=== PATIENT | female | born 1960 | race American Indian/Alaskan Native ===

== ENCOUNTER 2017-04-03 07:22 | Emergency (ER) | payer OTHER ==
[2017-04-03 07:30] VITALS: BP 124/82
--- NOTE | 2017-04-03 08:17 | Emergency Department Report ---
ED Upper Extremity Inj HPI - General Chief Complaint: Extremity Injury, Upper Stated Complaint: LEFT ARM PAIN Time Seen by Provider: 04/03/17 07:49 Source: patient Mode of arrival: Ambulatory Limitations: No Limitations - History of Present Illness Initial Comments: This is a 56-year-old female nontoxic, well nourished in appearance, no acute signs of distress presents to ED complaining of left arm pain with tickling sensation 1 day. Patient also stated she had a chest pain episode yesterday but denies any chest pain today. Patient describes chest pain as sharp sensation but denies any radiation. Today patient woke up with left arm pain and tingling. Patient also states she has upper back pain and pain radiates from back to her left arm. Patient denies any jaw pain, chest pain, shortness of breath, nausea, vomiting, fever, chills, stiff neck, numbness, or decreased range of motion. Patient denies any trauma to extremity. Patient describes left arm pain as aching with level of 3 out of 10. Allergies to penicillin. Denies past medical history. MD Complaint: Injury to:: left, arm -: Gradual, days(s) (1) Other Extremity Injury: Arm: Left Other Injuries: none Handedness: right Improves With: none Worsens With: none Associated Symptoms: denies other symptoms, neck pain. denies: weakness, numbness, suspects foreign body, nausea/vomiting, heard/felt popping sensat - Related Data Previous Rx's Medication Instructions Recorded Last Taken Type Acetaminophen/Codeine [Tylenol #3] 1 tab PO TID PRN #15 tab 04/26/15 Unknown Rx methOCARBAMOL [Robaxin TAB] 500 mg PO BID #20 tab 04/26/15 Unknown Rx Diazepam Tab [Valium] 5 mg PO Q8H PRN #21 tablet 04/29/15 Unknown Rx HYDROcodone/APAP 5-325 [Jarales 1 each PO Q6HR PRN #20 tablet 04/29/15 Unknown Rx 5/325] Ibuprofen [Motrin 600 MG tab] 600 mg PO Q8H PRN #30 tablet 04/03/17 Unknown Rx predniSONE [Deltasone] 20 mg PO BID #10 tab 04/03/17 Unknown Rx Allergies Allergy/AdvReac Type Severity Reaction Status Date / Time Penicillins Allergy Hives Verified 04/26/15 14:41 ED Review of Systems ROS: Stated complaint: LEFT ARM PAIN Other details as noted in HPI Constitutional: denies: chills, fever Eyes: denies: eye pain, eye discharge, vision change ENT: denies: ear pain, throat pain Respiratory: denies: cough, shortness of breath, wheezing Cardiovascular: denies: chest pain, palpitations Endocrine: no symptoms reported Gastrointestinal: denies: abdominal pain, nausea, diarrhea Genitourinary: denies: urgency, dysuria, discharge Musculoskeletal: denies: back pain, joint swelling, arthralgia Skin: denies: rash, lesions Neurological: denies: headache, weakness, paresthesias Psychiatric: denies: anxiety, depression Hematological/Lymphatic: denies: easy bleeding, easy bruising ED Past Medical Hx - Past Medical History Previous Medical History?: No - Surgical History Past Surgical History?: Yes Additional Surgical History: MISCARRIAGE d&c, left hand - Social History Smoking Status: Current Every Day Smoker Substance Use Type: Alcohol - Medications Home Medications: Home Medications Medication Instructions Recorded Confirmed Last Taken Type Acetaminophen/Codeine [Tylenol #3] 1 tab PO TID PRN #15 tab 04/26/15 Unknown Rx methOCARBAMOL [Robaxin TAB] 500 mg PO BID #20 tab 04/26/15 Unknown Rx Diazepam Tab [Valium] 5 mg PO Q8H PRN #21 tablet 04/29/15 Unknown Rx HYDROcodone/APAP 5-325 [Jarales 1 each PO Q6HR PRN #20 tablet 04/29/15 Unknown Rx 5/325] Ibuprofen [Motrin 600 MG tab] 600 mg PO Q8H PRN #30 tablet 04/03/17 Unknown Rx predniSONE [Deltasone] 20 mg PO BID #10 tab 04/03/17 Unknown Rx ED Physical Exam - General Limitations: No Limitations General appearance: alert, in no apparent distress - Head Head exam: Present: atraumatic, normocephalic, normal inspection - Eye Eye exam: Present: normal appearance, PERRL, EOMI. Absent: scleral icterus, conjunctival injection, nystagmus, periorbital swelling, periorbital tenderness Pupils: Present: normal accommodation - ENT ENT exam: Present: normal exam, normal orophraynx, mucous membranes moist, TM's normal bilaterally, normal external ear exam - Neck Neck exam: Present: normal inspection, full ROM. Absent: tenderness, meningismus, lymphadenopathy, thyromegaly - Respiratory Respiratory exam: Present: normal lung sounds bilaterally. Absent: respiratory distress, rales, rhonchi, stridor, chest wall tenderness, accessory muscle use, decreased breath sounds, prolonged expiratory - Cardiovascular Cardiovascular Exam: Present: regular rate, normal rhythm, normal heart sounds. Absent: bradycardia, tachycardia, irregular rhythm, systolic murmur, diastolic murmur, rubs, gallop - GI/Abdominal GI/Abdominal exam: Present: soft, normal bowel sounds. Absent: distended, tenderness, guarding, rebound, rigid, diminished bowel sounds - Rectal Rectal exam: Present: deferred - Extremities Exam Extremities exam: Present: normal inspection, full ROM, normal capillary refill. Absent: tenderness, pedal edema, joint swelling, calf tenderness - Expanded Upper Extremity Exam Left General: Present: normal inspection Shoulder Exam: Present: normal inspection, full ROM. Absent: tenderness, swelling, abrasion, laceration, ecchymosis, deformity, crepidus, dislocation, erythema, tenderness over AC joint Upper Arm exam: Present: normal inspection, full ROM. Absent: tenderness, swelling, abrasion, laceration, ecchymosis, deformity, crepidus, dislocation, erythema Elbow exam: Present: normal inspection, full ROM. Absent: tenderness, swelling , abrasion, laceration, ecchymosis, deformity, crepidus, dislocation, erythema, effusion, pain w/ pronation/supination, tenderness over radial head Forearm Wrist exam: Present: normal inspection, full ROM. Absent: tenderness, swelling, abrasion, laceration, ecchymosis, deformity, crepidus, dislocation, erythema, tenderness over anatomical snuff box, pain with axial thumb loading Hand Wrist exam: Present: normal inspection, full ROM. Absent: tenderness, swelling, abrasion, laceration, ecchymosis, deformity, crepidus, dislocation, erythema, amputation, nail avulsion, subungual hematoma Neuro motor exam: Present: wrist extension intact, thumb opposition intact, thumb IP flexion intact, thumb adduction intact, fingers 2-5 abduction intact Neurosensory exam: Present: 2-point discrimination, radial nerve intact, ulnar nerve intact, median nerve intact Vascular: Present: vascular compromise, normal capillary refill, radial pulse, brachial pulse, ulnar pulse - Back Exam Back exam: Present: normal inspection, full ROM. Absent: tenderness, CVA tenderness (R), CVA tenderness (L), muscle spasm, paraspinal tenderness, vertebral tenderness, rash noted - Neurological Exam Neurological exam: Present: alert, oriented X3, CN II-XII intact, normal gait, reflexes normal - Psychiatric Psychiatric exam: Present: normal affect, normal mood - Skin Skin exam: Present: warm, dry, intact, normal color. Absent: rash - Other Other exam information: Nonreproducible chest pain. ED Course Vital Signs 04/03/17 07:27 Temperature 97.4 F L Pulse Rate 67 Respiratory 18 Rate Blood Pressure 124/82 O2 Sat by Pulse 97 Oximetry - Reevaluation(s) Reevaluation #1: 04/03/17 08:21 Patient is speaking in full sentences with no signs of distress noted. ED Medical Decision Making - Medical Decision Making ED course; as is a 56-year-old female that presents with cervical radiculopathy/ spondylosis 1- patient was examined myself. CBC, BMP, troponin, cardiac CK, EKG, chest x- ray and cervical lumbar x-ray has been obtained. All normal findings. Patient was instructed of results. Cervical x-ray has been dictated by radiologist and impression of cervical spondylosis. 2- ORLANDO score; 0 point. 0.8% risk of all cases mortality at 30 days. 3- patient was treated for cervical radiculopathy with ibuprofen and prednisone. 4- patient was instructed to follow-up with her primary care doctor/orthopedic doctor in 3-5 days or if symptoms such as chest pain, shortness of breath, nausea, vomiting, fever, chills, headache return to emergency room as soon as possible. 5- At time time of discharge, the patient does not seem toxic or ill in appearance. No acute signs of distress noted. Patient agrees to discharge treatment plan of care. No further questions noted by the patient. Critical care attestation.: If time is entered above; I have spent that time in minutes in the direct care of this critically ill patient, excluding procedure time. ED Disposition Clinical Impression: Cervical radiculopathy Cervical spondylosis Qualifiers: Spinal osteoarthritis complication: unspecified spinal osteoarthritis Qualified Code(s): M47.812 - Spondylosis without myelopathy or radiculopathy, cervical region Disposition: - TO HOME OR SELFCARE Is pt being admited?: No Does the pt Need Aspirin: No Condition: Stable Instructions: Ibuprofen (By mouth), Prednisone (By mouth), Cervical Spinal Stenosis (ED), Cervical Radiculopathy (ED) Additional Instructions: follow-up with your primary care doctor/orthopedic doctor in 3-5 days or if symptoms such as chest pain, shortness of breath, nausea, vomiting, fever, chills, headache return to emergency room as soon as possible. Take ibuprofen and prednisone as prescribed. Prescriptions: Ibuprofen [Motrin 600 MG tab] 600 mg PO Q8H PRN #30 tablet PRN Reason: Pain predniSONE [Deltasone] 20 mg PO BID #10 tab Referrals: PRIMARY CAREMD [Primary Care Provider] - 3-5 Days GRACE CARLSON MD [Staff Physician] - 3-5 Days [facility] [Outside] - 3-5 Days [facility] [Outside] - 3-5 Days ANTONIO ARRIETA MD [Staff Physician] - 3-5 Days Forms: Work/School Release Form(ED)
--- NOTE | 2017-04-03 08:40 | XRay Report ---
Chest 2 views: History: Chest pain. Findings Borderline cardiomegaly. Trachea is midline. No consolidation, pneumothorax or pleural effusion. Impression: No definite acute cardiopulmonary findings
--- NOTE | 2017-04-03 08:41 | XRay Report ---
Cervical spine 3 views: History: Back pain. Findings: Normal height of vertebral bodies and intervertebral disc. Sclerotic articular surfaces with peripheral osteophyte at C4, C5 and C6. No acute fracture. Normal prevertebral soft tissue. Impression: Cervical spondylosis.
[2017-04-03 09:37] LABS: Basophils % (Auto) 0.5 % (0.0-1.8); Eosinophils % (Auto) 2.1 % (0.0-4.3); Hematocrit 41.3 % (30.3-42.9); Hemoglobin 14.1 gm/dl (10.1-14.3); Mean Corpuscular HGB Conc 34 % (30-34); Mean Corpuscular Hemoglobin 32 pg (28-32); Mean Corpuscular Volume 94 fl (79-97); Platelet Count 223 K/mm3 (140-440); Red Blood Count 4.39 M/mm3 (3.65-5.03); Red Cell Distribution Width 13.2 % (13.2-15.2); White Blood Count 7.5 K/mm3 (4.5-11.0)
[2017-04-03 09:49] LABS: Creatine Kinase MB 3.2 ng/mL (0.0-4.0)
[2017-04-03 09:51] LABS: Anion Gap 16 mmol/L; BUN/Creatinine Ratio 15.55; Blood Urea Nitrogen 14 mg/dL (7-17); Carbon Dioxide 27 mmol/L (22-30); Creatine Kinase 92 units/L (30-135); Glucose 99 mg/dL (65-100); Potassium 4.2 mmol/L (3.6-5.0); Sodium 141 mmol/L (137-145)
== END 2017-04-03 10:11 | disposition home or self-care (01) ==
LOC: ED 07:22
DX: M54.12 Radiculopathy, cervical region (principal); M47.812 Spondylosis without myelopathy or radiculopathy, cervical region; F17.200 Nicotine dependence, unspecified, uncomplicated; Z88.0 Allergy status to penicillin
CPT/HCPCS: 36415; 71020; 72040; 80048; 82550; 82553; 84484; 85025; 93005; 93010

== ENCOUNTER 2019-12-01 23:26 | Emergency (ER) | payer SELFPAY ==
[2019-12-01 23:33] VITALS: BP 143/99
[2019-12-01 23:53] LABS: Basophils % (Auto) 0.5 % (0.0-1.8); Eosinophils # (Auto) 0.1 K/mm3 (0.0-0.4); Eosinophils % (Auto) 1.4 % (0.0-4.3); Hematocrit 40.5 % (30.3-42.9); Hemoglobin 13.8 gm/dl (10.1-14.3); Lymphocytes # (Auto) 3.3 K/mm3 (1.2-5.4); Lymphocytes % (Auto) 33.4 % (13.4-35.0); Mean Corpuscular HGB Conc 34 % (30-34); Mean Corpuscular Volume 90 fl (79-97); Monocytes # (Auto) 0.6 K/mm3 (0.0-0.8); Monocytes % (Auto) 6.3 % (0.0-7.3); Platelet Count 215 K/mm3 (140-440); Red Blood Count 4.49 M/mm3 (3.65-5.03); Red Cell Distribution Width 12.8 % (13.2-15.2)
[2019-12-02 00:11] LABS: Alanine Aminotransferase 24 units/L (7-56); Albumin 3.9 g/dL (3.9-5); BUN/Creatinine Ratio 19; Blood Urea Nitrogen 13 mg/dL (7-17); Calcium 9.1 mg/dL (8.4-10.2); Hemolysis Index 9
[2019-12-02 01:04] LABS: Bacteria,Urine 1+ /HPF (Negative); Bilirubin,Urine NEG (Negative); Blood,Urine NEG (Negative); Color,Urine Yellow (Yellow); Mucus,Urine 2+ /HPF; Protein,Urine <15 mg/dL mg/dL (Negative); Urobilinogen,Urine < 2.0 mg/dL (<2.0)
== END 2019-12-02 03:00 | disposition left against medical advice (07) ==
LOC: ED 23:26
DX: M54.6 Pain in thoracic spine (principal); Z53.21 Procedure and treatment not carried out due to patient leaving prior to being seen by health care provider
CPT/HCPCS: 36415; 80053; 81001; 82550; 83690; 83735; 85025